=== PATIENT | female | born 1945 | race Caucasian/White ===

== ENCOUNTER 2017-02-01 10:05 | Day surgery (SDC) | payer OTHER, MEDICARE ==
[~2017-02-01] VITALS: Ht 167.6 cm; Wt 113.0 kg
[~2017-02-01 10:05] MED LIST: AMLODIPINE BESYL5 MG PO; HYDROCHLOROTHIA25 MG PO; LO-DOSE ASPIRIN81 M2 PO; METOPROLOL SUCC50 MG PO; SYNTHROID150 MCG PO
[2017-02-01] MEDS ORDERED: ASPIR 8181 M1 PO (10:34)
== END 2017-02-01 17:05 | disposition home or self-care (01) ==
LOC: CATH 10:05
DX: R07.9 Chest pain, unspecified (principal); R06.02 Shortness of breath; I25.10 Atherosclerotic heart disease of native coronary artery without angina pectoris; I10 Essential (primary) hypertension; E78.00 Pure hypercholesterolemia, unspecified; Z82.49 Family history of ischemic heart disease and other diseases of the circulatory system; E66.9 Obesity, unspecified; Z68.35 Body mass index [BMI] 35.0-35.9, adult
CPT/HCPCS: C1769; C1887; J1200; J1644; J2250; J2930; J3010; S0028

== ENCOUNTER → 2017-12-25 | Outpatient (CLI) | payer OTHER, MEDICARE ==
[~2017-12-25] MED LIST changes: +ASPIR 8181 M1 PO
[2017-12-25 13:12] LABS: BASE EXCESS -0.5 mEq/L (-3 to +3); BICARBONATE 23.1 mEq/L (22-26); CARBOXY HGB 1.7 % (0-5); COMMENTS - BLOOD GASES A+C+; PCO2 34 mm Hg (35-45); PO2 83 mm Hg (80-100); SITE RR; TOTAL RESP RATE 18 resp/min; pH 7.44 (7.35-7.45)
== END | disposition home or self-care (01) ==
LOC: RES 12:56
PROVIDERS: Internal Medicine Pulmonary Disease
DX: R06.02 Shortness of breath (principal)
CPT/HCPCS: 36600; 82803; 94060; 94726; 94729